=== PATIENT | female | born 1995 | race Caucasian/White ===

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

== ENCOUNTER 2017-08-16 23:08 | Emergency (ER) | payer OTHER ==
[~2017-08-16] VITALS: Ht 170.2 cm; Wt 61.2 kg
[2017-08-16 23:11] VITALS: BP 140/78
[2017-08-17] MEDS: METOCLOPRAMIDE 10 MG/2 ML INJ VIAL IVP ONE (00:11)
[2017-08-17] MEDS: NACL 0.9% 1,000 ML IV ONE (00:12)
[2017-08-17 01:38] VITALS: BP 132/70
== END 2017-08-17 01:38 | disposition home or self-care (01) ==
LOC: MED 23:08
DX: O23.42 Unspecified infection of urinary tract in pregnancy, second trimester (principal); Z3A.17 17 weeks gestation of pregnancy; R03.0 Elevated blood-pressure reading, without diagnosis of hypertension
CPT/HCPCS: 36415; 76810; 80053; 81001; 81025; 84702; 85025; 86900; 86901; 87086; 96361; 96374; 99285; J2765; J7030

== ENCOUNTER 2022-07-12 16:25 | Emergency (ER) | payer MEDICAID, OTHER ==
[~2022-07-12] VITALS: Ht 170.2 cm; Wt 78.5 kg
[~2022-07-12 16:25] MED LIST changes: +FERR-252 PO; -NATURAL IRON65 MG PO; +PREN-385 PO; -PRENATAL VITAMI1 T10 PO
[2022-07-12 17:02] VITALS: BP 127/72
[2022-07-12 17:34] LABS: BASOPHILS % (AUTO) 0.4 % (0.0-2.0); EOSINOPHILS # (AUTO) 0.1 K/uL (0-0.4); EOSINOPHILS % (AUTO) 1.2 % (0.0-4.0); HEMATOCRIT 38.8 % (36-48); LYMPHOCYTES # (AUTO) 1.4 K/uL (2.5-16.5); LYMPHOCYTES % (AUTO) 16.2 % (20.5-51.1); MEAN CORPUSCULAR HEMOGLOBIN 28 pg (27-31); MEAN CORPUSCULAR HGB CONC 34 g/dL (33-37); MEAN CORPUSCULAR VOLUME 83.2 fL (80-94); MONOCYTES # (AUTO) 0.6 K/uL (0.8-1.0); MONOCYTES % (AUTO) 6.9 % (1.7-9.3); NEUTROPHILS # (AUTO) 6.7 K/uL (1.8-7.7); NEUTROPHILS % (AUTO) 75.3 % (42.2-75.2); PLATELET COUNT (AUTO) 296 K/uL (140-450); RED BLOOD CELL COUNT(AUTO) 4.67 MIL/uL (4.20-5.40); RED CELL DISTRIBUTION WIDTH 14.7 % (11.6-13.7); WHITE BLOOD COUNT (AUTO) 8.9 K/uL (4.8-10.8)
[2022-07-12 17:55] LABS: ANION GAP 12.2 (8-16); CARBON DIOXIDE 27.5 mmol/L (21-32); POTASSIUM 3.7 mmol/L (3.5-5.1); TOTAL BILIRUBIN 0.2 mg/dL (0.0-1.0)
--- NOTE | 2022-07-12 18:26 | NUR ---
DR HOLLINS AT PT SIDE FOR EVAL
--- NOTE | 2022-07-12 18:45 | NUR ---
PT TAKEN TO CT VIA WHEELCHAIR
[2022-07-12 19:46] VITALS: BP 114/72
--- NOTE | 2022-07-12 19:46 | NUR ---
Patient discharged with v/s stable. Written and verbal after care instructions given and explained. Patient verbalized understanding. Ambulatory with steady gait. All questions addressed prior to discharge. Advised to follow up with PMD.
== END 2022-07-12 19:46 | disposition home or self-care (01) ==
LOC: MED 16:25
DX: R10.2 Pelvic and perineal pain (principal); Z79.899 Other long term (current) drug therapy
CPT/HCPCS: 36415; 76856; 80053; 81002; 81025; 83690; 84702; 85025; 99284; Q0092

== ENCOUNTER 2023-12-13 14:39 | Emergency (ER) | payer MEDICAID, OTHER ==
[~2023-12-13] VITALS: Ht 170.2 cm; Wt 81.6 kg
[2023-12-13 14:46] VITALS: BP 116/74; PULSE 83; RESP 16; TEMP 98.2; O2SAT 100
[2023-12-13] MEDS ORDERED: KETOROLAC 30 MG/ML VIAL IM ONE (15:45)
[2023-12-13] MEDS ORDERED: NAPR-1704 PO (16:10)
[2023-12-13] MEDS ORDERED: CAPS1ADH5 TP (16:10)
== END 2023-12-13 16:14 | disposition home or self-care (01) ==
LOC: MED 14:39
DX: J06.9 Acute upper respiratory infection, unspecified (principal); M25.511 Pain in right shoulder; M25.512 Pain in left shoulder; M54.2 Cervicalgia; Z79.899 Other long term (current) drug therapy
CPT/HCPCS: 81025; 96372; 99283; J1885

== ENCOUNTER 2024-03-04 08:20 | Emergency (ER) | payer OTHER ==
[~2024-03-04] VITALS: Ht 170.2 cm; Wt 79.8 kg
[~2024-03-04 08:20] MED LIST changes: +CAPS1ADH5 TP; +NAPR-1704 PO
[2024-03-04 08:39] VITALS: BP 117/70; PULSE 89; RESP 18; TEMP 97.8; O2SAT 100
[2024-03-04 10:17] LABS: FLU A ANTIGEN negative (NEGATIVE); FLU B ANTIGEN POSITIVE (NEGATIVE)
[2024-03-04] MEDS ORDERED: BENZ200C4 PO (10:47)
[2024-03-04] MEDS ORDERED: TAM75 PO (10:47)
[2024-03-04 10:53] VITALS: BP 123/70; PULSE 88; RESP 20; TEMP 98.3; O2SAT 99
== END 2024-03-04 10:52 | disposition home or self-care (01) ==
LOC: MED 08:20
DX: J10.1 Influenza due to other identified influenza virus with other respiratory manifestations (principal); Z20.822 Contact with and (suspected) exposure to COVID-19; Z79.899 Other long term (current) drug therapy
CPT/HCPCS: 87081; 99283

== ENCOUNTER 2024-06-04 10:19 | Inpatient (IN) | payer OTHER ==
[~2024-06-04] VITALS: Ht 170.2 cm; Wt 77.6 kg
[~2024-06-04 10:19] MED LIST changes: +BENZ200C4 PO; +TAM75 PO
[2024-06-04 10:25] VITALS: BP 126/87; PULSE 133; RESP 20; TEMP 98.7; O2SAT 98
[2024-06-04] MEDS: ACETAMINOPHEN EXTRA STRENGTH 500 MG TAB PO ONE ×2 (10:30→16:39)
[2024-06-04] MEDS: ONDANSETRON 4 MG/2 ML VIAL IVP ONE ×2 (10:44→16:41)
[2024-06-04 11:05] LABS: BASOPHILS % (AUTO) 0.1 % (0.0-2.0); HEMATOCRIT 34.5 % (36-48); HEMOGLOBIN 11.4 g/dL (12.0-16.0); LYMPHOCYTES # (AUTO) 0.3 K/uL (2.5-16.5); LYMPHOCYTES % (AUTO) 2.7 % (20.5-51.1); MEAN CORPUSCULAR HEMOGLOBIN 26 pg (27-31); MEAN CORPUSCULAR HGB CONC 33 g/dL (33-37); MEAN CORPUSCULAR VOLUME 78.2 fL (80-94); MONOCYTES # (AUTO) 1.1 K/uL (0.8-1.0); MONOCYTES % (AUTO) 8.4 % (1.7-9.3); NEUTROPHILS # (AUTO) 11.2 K/uL (1.8-7.7); NEUTROPHILS % (AUTO) 88.8 % (42.2-75.2); PLATELET COUNT (AUTO) 221 K/uL (140-450); RED BLOOD CELL COUNT(AUTO) 4.41 MIL/uL (4.20-5.40); RED CELL DISTRIBUTION WIDTH 17.4 % (11.6-13.7); WHITE BLOOD COUNT (AUTO) 12.6 K/uL (4.8-10.8)
[2024-06-04 11:32] LABS: ALBUMIN 3.1 g/dL (3.4-5.0); ANION GAP 15.3 (8-16); CALCIUM 8.5 mg/dL (8.5-10.1); CARBON DIOXIDE 21.5 mmol/L (21-32); TOTAL BILIRUBIN 0.4 mg/dL (0.0-1.0); TOTAL PROTEIN, SERUM 7.7 g/dL (6.4-8.2)
[2024-06-04 11:33] VITALS: O2SAT 98
[2024-06-04 11:43] LABS: POTASSIUM 2.8 mmol/L (3.5-5.1)
[2024-06-04] MEDS: MORPHINE SULFATE 2 MG/ML SYR IVP ONE (11:49)
[2024-06-04] MEDS: NACL 0.9% 1,000 ML IV ONE ×2 (11:51→11:58)
[2024-06-04] MEDS: POTASSIUM CHLORIDE 10 MEQ TABER PO ONE (11:59)
[2024-06-04 13:27] LABS: APPEARANCE,URINE SL CLOUDY (CLEAR); BILIRUBIN,URINE NEGATIVE (NEGATIVE); BLOOD, URINE TRACE-I (NEGATIVE); COLOR,URINE AMBER (YELLOW); LEUKOCYTE ESTERASE ,URINE 1+ (NEGATIVE); NITRITE, URINE POSITIVE (NEGATIVE); PROTEIN,URINE 1+ (NEGATIVE); UGLUCOSE 2+ (NEGATIVE)
[2024-06-04 13:31] LABS: BACTERIA,URINE >30 (MANY) /HPF (None Seen); RBC,URINE 0-5 /HPF (0-5); SQUAMOUS EPITHELIAL CELL,UR 4-10 (MOD) /LPF (0-3 (FEW))
[2024-06-04] MEDS ORDERED: cefTRIAXone 1,000 MG VIAL ONE (14:16)
[2024-06-04 15:02] LABS: FLU A ANTIGEN negative (NEGATIVE); FLU B ANTIGEN NEGATIVE (NEGATIVE)
[2024-06-04] MEDS: MORPHINE SULFATE 2 MG/ML SYR IVP STA (15:20)
[2024-06-04] MEDS: NACL 0.9% 1,000 ML IV SCH (15:25)
[2024-06-04] MEDS ORDERED: KCL 20 MEQ IN 100 mL PREMIX 200 ML IV PRN (15:25)
[2024-06-04] MEDS ORDERED: MAG SULF 2000 MG/WATER PREMIX 50 ML IV PRN (15:25)
[2024-06-04] MEDS: ACETAMINOPHEN 650 MG SUPP RC ONE (16:34)
[2024-06-04 18:02] VITALS: BP 106/83; PULSE 105; RESP 18; TEMP 101.2; O2SAT 98
[2024-06-04 18:07] VITALS: PULSE 105
[2024-06-04 20:00] VITALS: PULSE 113; PULSE 75; RESP 18; O2SAT 98
[2024-06-04] MEDS: ACETAMINOPHEN 325 MG TAB PO PRN (21:02)
[2024-06-04] MEDS: HYDROcodone/APAP 5/325 MG 1 TAB TAB PO PRN (23:34)
[2024-06-04] MEDS: ONDANSETRON 4 MG/2 ML VIAL IVP PRN (23:42)
[2024-06-05] VITALS: BP 102/50; PULSE 101; PULSE 102; RESP 18; TEMP 98.4; O2SAT 100
[2024-06-05 04:00] VITALS: BP 100/60; PULSE 85; PULSE 88; RESP 18; TEMP 98.2; O2SAT 98
[2024-06-05 06:44] LABS: BASOPHILS % (AUTO) 0.1 % (0.0-2.0); HEMATOCRIT 32.8 % (36-48); HEMOGLOBIN 10.7 g/dL (12.0-16.0); LYMPHOCYTES # (AUTO) 0.6 K/uL (2.5-16.5); LYMPHOCYTES % (AUTO) 4.7 % (20.5-51.1); MEAN CORPUSCULAR HEMOGLOBIN 26 pg (27-31); MEAN CORPUSCULAR HGB CONC 33 g/dL (33-37); MEAN CORPUSCULAR VOLUME 78.7 fL (80-94); MONOCYTES # (AUTO) 1.3 K/uL (0.8-1.0); MONOCYTES % (AUTO) 9.8 % (1.7-9.3); NEUTROPHILS # (AUTO) 10.9 K/uL (1.8-7.7); NEUTROPHILS % (AUTO) 85.4 % (42.2-75.2); PLATELET COUNT (AUTO) 205 K/uL (140-450); RED BLOOD CELL COUNT(AUTO) 4.17 MIL/uL (4.20-5.40); RED CELL DISTRIBUTION WIDTH 17.4 % (11.6-13.7); WHITE BLOOD COUNT (AUTO) 12.8 K/uL (4.8-10.8)
[2024-06-05 07:06] LABS: MAGNESIUM 1.7 mg/dL (1.8-2.4); PHOSPHORUS 2.9 mg/dL (2.5-4.9)
[2024-06-05 07:13] LABS: ANION GAP 12.8 (8-16); CALCIUM 7.9 mg/dL (8.5-10.1); CARBON DIOXIDE 22.4 mmol/L (21-32); CREATININE 0.8 mg/dL (0.6-1.3); POTASSIUM 3.2 mmol/L (3.5-5.1)
[2024-06-05 08:00] VITALS: BP 98/54; PULSE 79; PULSE 97; RESP 17; TEMP 98; O2SAT 98
[2024-06-05] MEDS: POTASSIUM CHLORIDE 10 MEQ TABER PO SCH (09:54)
[2024-06-05] MEDS: MAGNESIUM OXIDE 400 MG TAB PO PRN (09:54)
[2024-06-05 12:00] VITALS: BP 104/62; PULSE 85; PULSE 89; RESP 19; TEMP 97.4; O2SAT 98
[2024-06-05 16:00] VITALS: BP 98/65; PULSE 77; PULSE 95; RESP 17; TEMP 98.2; O2SAT 99
[2024-06-05] MEDS: MORPHINE SULFATE 4 MG/ML SYR IVP PRN (16:32)
[2024-06-05 20:00] VITALS: BP 99/59; PULSE 81; PULSE 87; RESP 17; RESP 18; TEMP 97.4; O2SAT 97
[2024-06-06 04:00] VITALS: BP 101/53; PULSE 88; RESP 18; TEMP 98.9; O2SAT 98
[2024-06-06 07:19] LABS: HEMATOCRIT 29.5 % (36-48); HEMOGLOBIN 9.9 g/dL (12.0-16.0); MEAN CORPUSCULAR HEMOGLOBIN 26 pg (27-31); MEAN CORPUSCULAR HGB CONC 34 g/dL (33-37); MEAN CORPUSCULAR VOLUME 77.8 fL (80-94); PLATELET COUNT (AUTO) 187 K/uL (140-450); RED BLOOD CELL COUNT(AUTO) 3.79 MIL/uL (4.20-5.40); RED CELL DISTRIBUTION WIDTH 17.7 % (11.6-13.7)
[2024-06-06 07:41] LABS: PHOSPHORUS 3.1 mg/dL (2.5-4.9)
[2024-06-06 08:00] VITALS: BP 103/55; PULSE 80; PULSE 82; RESP 17; RESP 19; TEMP 98; O2SAT 96; O2SAT 98
[2024-06-06 08:03] LABS: EOSINOPHILS % (MANUAL) 1 % (0-4)
[2024-06-06 08:04] LABS: LYMPHOCYTES % (MANUAL) 9 % (20-46); MONOCYTES % (MANUAL) 12 % (5-12)
[2024-06-06 08:05] LABS: PLATELET ESTIMATE ADEQUATE
[2024-06-06 08:18] LABS: ANION GAP 12.3 (8-16); CARBON DIOXIDE 24.2 mmol/L (21-32); CREATININE 0.6 mg/dL (0.6-1.3); POTASSIUM 3.5 mmol/L (3.5-5.1)
[2024-06-06 16:00] VITALS: BP 115/68; PULSE 83; RESP 19; TEMP 97.2; O2SAT 96
[2024-06-06 20:00] VITALS: BP 104/64; PULSE 84; RESP 16; RESP 18; TEMP 98.5; O2SAT 97
[2024-06-07 04:00] VITALS: BP 95/54; PULSE 78; RESP 18; TEMP 98.3; O2SAT 98
[2024-06-07 07:21] LABS: BASOPHILS % (AUTO) 0.3 % (0.0-2.0); EOSINOPHILS % (AUTO) 0.7 % (0.0-4.0); HEMATOCRIT 29.2 % (36-48); HEMOGLOBIN 9.7 g/dL (12.0-16.0); LYMPHOCYTES # (AUTO) 1.6 K/uL (2.5-16.5); LYMPHOCYTES % (AUTO) 23.4 % (20.5-51.1); MEAN CORPUSCULAR HEMOGLOBIN 26 pg (27-31); MEAN CORPUSCULAR HGB CONC 33 g/dL (33-37); MONOCYTES % (AUTO) 15.7 % (1.7-9.3); NEUTROPHILS % (AUTO) 59.9 % (42.2-75.2); PLATELET COUNT (AUTO) 224 K/uL (140-450); RED BLOOD CELL COUNT(AUTO) 3.74 MIL/uL (4.20-5.40); RED CELL DISTRIBUTION WIDTH 17.4 % (11.6-13.7); WHITE BLOOD COUNT (AUTO) 6.7 K/uL (4.8-10.8)
[2024-06-07 07:54] LABS: ANION GAP 12.1 (8-16); CALCIUM 7.8 mg/dL (8.5-10.1); CARBON DIOXIDE 25.2 mmol/L (21-32); CREATININE 0.6 mg/dL (0.6-1.3); POTASSIUM 3.3 mmol/L (3.5-5.1)
[2024-06-07 08:00] VITALS: BP 91/53; PULSE 65; RESP 16; RESP 18; TEMP 96.9; O2SAT 97; O2SAT 98
[2024-06-07 08:20] LABS: PHOSPHORUS 3.8 mg/dL (2.5-4.9)
[2024-06-07] MEDS: POTASSIUM CHLORIDE 10 MEQ TABER PO PRN (09:02)
[2024-06-07] MEDS ORDERED: AMOX-1230 PO (13:53)
[2024-06-07 13:58] VITALS: BP 91/53; PULSE 97; RESP 16; TEMP 96.9
== END 2024-06-07 16:13 | disposition home or self-care (01) | DRG 566 ==
LOC: MED 10:19 → MTU 15:28
PROVIDERS: ADMIT Hospitalist; ATTEND Hospitalist
DX: O98.811 Other maternal infectious and parasitic diseases complicating pregnancy, first trimester (principal); R65.20 Severe sepsis without septic shock; E44.0 Moderate protein-calorie malnutrition; O23.01 Infections of kidney in pregnancy, first trimester; R71.0 Precipitous drop in hematocrit; E87.1 Hypo-osmolality and hyponatremia; Z3A.08 8 weeks gestation of pregnancy; Z20.822 Contact with and (suspected) exposure to COVID-19; O25.11 Malnutrition in pregnancy, first trimester; A41.9 Sepsis, unspecified organism; O20.8 Other hemorrhage in early pregnancy; O99.011 Anemia complicating pregnancy, first trimester; Z79.899 Other long term (current) drug therapy; O99.281 Endocrine, nutritional and metabolic diseases complicating pregnancy, first trimester
CPT/HCPCS: 36415; 76801; 80048; 80053; 81001; 83605; 83690; 83735; 84100; 84702; 85025; 86900; 86901; 87040; 87081; 87086; 87186; 96361; 96365; 96375; 96376; 99291; J0696; J2270; J2405; J7060; Q0092